=== PATIENT | female | born 2000 | race Two or more races ===

== ENCOUNTER 2024-05-21 13:32 | Emergency (ER) | payer OTHER ==
[~2024-05-21] VITALS: Ht 167.6 cm; Wt 84.4 kg
[2024-05-21 14:22] VITALS: BP 135/78; O2SAT 98
[2024-05-21 18:01] LABS: HEMATOCRIT 36.2 % (36.0-45.00); HEMOGLOBIN 12.3 g/dL (12.0-15.00); MEAN CELL VOLUME 85.9 fL (80.00-100.00); MEAN CORPUSCULAR HEMOGLOBIN 29.1 pg (27.00-32.0); MEAN CORPUSCULAR HGB CONC 33.9 g/dl (32.0-36.0); PLATELET COUNT 230 K/uL (150-450); RED BLOOD COUNT 4.21 M/uL (4.00-6.00)
[2024-05-21] MEDS ORDERED: GILTUSS COUGH-118 M1 PO (20:07)
== END 2024-05-21 20:19 | disposition home or self-care (01) ==
LOC: ER 13:34
PROVIDERS: Preventive Medicine Public Health & General Preventive Medicine
DX: R53.81 Other malaise (principal); J06.9 Acute upper respiratory infection, unspecified; Z20.822 Contact with and (suspected) exposure to COVID-19